=== PATIENT | female | born 1985 | race African-American/Black ===

== ENCOUNTER 2021-11-16 22:13 | Inpatient (IN) | payer MEDICAID ==
[~2021-11-16] VITALS: Ht 179 cm; Wt 92.1 kg
[2021-11-16] MEDS ORDERED: MORPHINE SULFATE 5 MG/ML VIAL IVP PRN (23:40)
[2021-11-16] MEDS ORDERED: ONDANSETRON 4 MG/2 ML VIAL IVP PRN (23:40)
[2021-11-16] MEDS ORDERED: CARBOPROST 250 MCG/ML AMP IM PRN (23:40)
[2021-11-16] MEDS ORDERED: OXYTOCIN 20 UNITS in LACTATED RINGERS 1,000 ML IV SCH (23:40)
[2021-11-16] MEDS ORDERED: MISOPROSTOL 25 MCG TAB VG PRN (23:40)
[2021-11-16] MEDS ORDERED: LACTATED RINGERS 1,000 ML IV SCH (23:40)
[2021-11-16] MEDS ORDERED: METHYLERGONOVINE 0.2 MG/ML AMP IM PRN (23:40)
[2021-11-17 00:11] LABS: BASOPHILS % (AUTO) 0.3 % (0.0-2.0); EOSINOPHILS # (AUTO) 0.2 K/uL (0-0.4); EOSINOPHILS % (AUTO) 1.9 % (0.0-4.0); HEMATOCRIT 34.2 % (36-48); HEMOGLOBIN 11.6 g/dL (12.0-16.0); LYMPHOCYTES # (AUTO) 2.4 K/uL (2.5-16.5); LYMPHOCYTES % (AUTO) 30.2 % (20.5-51.1); MEAN CORPUSCULAR HEMOGLOBIN 33 pg (27-31); MEAN CORPUSCULAR HGB CONC 34 g/dL (33-37); MEAN CORPUSCULAR VOLUME 98.1 fL (80-94); MONOCYTES # (AUTO) 0.9 K/uL (0.8-1.0); MONOCYTES % (AUTO) 10.6 % (1.7-9.3); NEUTROPHILS # (AUTO) 4.6 K/uL (1.8-7.7); PLATELET COUNT (AUTO) 179 K/uL (140-450); RED BLOOD CELL COUNT(AUTO) 3.49 MIL/uL (4.20-5.40); RED CELL DISTRIBUTION WIDTH 13.2 % (11.6-13.7); WHITE BLOOD COUNT (AUTO) 8.1 K/uL (4.8-10.8)
[2021-11-17 00:19] LABS: APPEARANCE,URINE CLEAR (CLEAR); BILIRUBIN,URINE NEGATIVE (NEGATIVE); BLOOD, URINE NEGATIVE (NEGATIVE); COLOR,URINE YELLOW (YELLOW); LEUKOCYTE ESTERASE ,URINE NEGATIVE (NEGATIVE); NITRITE, URINE NEGATIVE (NEGATIVE); UGLUCOSE NEGATIVE (NEGATIVE)
[2021-11-17 00:34] LABS: ALBUMIN 2.7 g/dL (3.4-5.0); ANION GAP 12.1 (8-16); CARBON DIOXIDE 25.7 mmol/L (21-32); CREATININE 0.6 mg/dL (0.6-1.3); POTASSIUM 3.8 mmol/L (3.5-5.1); TOTAL BILIRUBIN 0.3 mg/dL (0.0-1.0)
[2021-11-17] MEDS ORDERED: PRETAB PO (03:31)
[2021-11-17 03:32] VITALS: BP 121/82
[2021-11-17] MEDS ORDERED: ROPIVACAINE 0.2%/NS PREMIX 200 ML EPI ONE (05:26)
[2021-11-17] MEDS ORDERED: fentaNYL citrate 0.05 MG/ML VIAL ONE (05:29)
[2021-11-17] MEDS ORDERED: AMPICILLIN 2,000 MG VIAL ONE (05:29)
[2021-11-17] MEDS ORDERED: OXYTOCIN 20 UNITS/LR PREMIX 1,000 ML IV ONE (06:39)
[2021-11-17] MEDS ORDERED: MEASLES, MUMPS, AND RUBELLA 1 VIAL SQVAC ONE (07:40)
[2021-11-17] MEDS ORDERED: bisacodyL 5 MG TABEC PO PRN (07:40)
[2021-11-17] MEDS ORDERED: METHYLERGONOVINE 0.2 MG TAB PO PRN (07:40)
[2021-11-17] MEDS ORDERED: METHYLERGONOVINE 0.2 MG/ML AMP IM PRN (07:40)
[2021-11-17] MEDS ORDERED: SIMETHICONE 80 MG TAB.CHEW PO PRN (07:40)
[2021-11-17] MEDS ORDERED: IBUPROFEN 600 MG TAB PO PRN (07:40)
[2021-11-17] MEDS ORDERED: OXYTOCIN 10 UNITS/ML VIAL IM PRN (07:40)
[2021-11-17] MEDS ORDERED: DOCUSATE SODIUM 100 MG GELCAP PO PRN (07:40)
[2021-11-17] MEDS ORDERED: BENZOCAINE/MENTHOL 20%-0.5% 60 GM CAN TP PRN (07:40)
[2021-11-17] MEDS ORDERED: AMPICILLIN 2,000 MG in NACL 0.9% MINI-BAG PLUS 100 ML IV SCH (08:00)
--- NOTE | 2021-11-17 09:06 | NUR ---
PATIENT HAS BEEN SCREENED AND CATEGORIZED LOW NUTRITION RISK. PATIENT WILL BE SEEN WITHIN 7 DAYS OF ADMISSION. 11/23/[address]
[2021-11-17] MEDS ORDERED: AMPICILLIN 1,000 MG in NACL 0.9% MINI-BAG PLUS 50 ML IV SCH (12:00)
[2021-11-17] MEDS: IBUPROFEN 800 MG TAB PO PRN ×2 (12:33→20:44)
[2021-11-18] MEDS ORDERED: oxyCODONE/APAP 5/325 MG 1 TAB TAB ONE (00:08)
[2021-11-18] MEDS ORDERED: oxyCODONE/APAP 5/325 MG 1 TAB TAB PO PRN (00:10)
[2021-11-18] MEDS: IBUPROFEN 800 MG TAB PO PRN ×2 (06:48→13:15)
[2021-11-18 09:23] LABS: HEMATOCRIT 35.8 % (36-48)
== END 2021-11-18 14:40 | disposition home or self-care (01) | DRG 560 ==
LOC: OBSVTOIN 22:13 → MLD 22:13 → MFCC 11-17 13:19
PROVIDERS: ADMIT Obstetrics & Gynecology; ATTEND Obstetrics & Gynecology
PROC: 10E0XZZ Delivery of Products of Conception, External Approach (ICD-10-PCS; principal; 2021-11-17)
PROC: 3E0R3BZ Introduction of Anesthetic Agent into Spinal Canal, Percutaneous Approach (ICD-10-PCS; 2021-11-17)
PROC: 00HU33Z Insertion of Infusion Device into Spinal Canal, Percutaneous Approach (ICD-10-PCS; 2021-11-17)
DX: O77.0 Labor and delivery complicated by meconium in amniotic fluid (principal); Z37.0 Single live birth; O69.81X0 Labor and delivery complicated by cord around neck, without compression, not applicable or unspecified; Z20.822 Contact with and (suspected) exposure to COVID-19; Z3A.39 39 weeks gestation of pregnancy; O99.02 Anemia complicating childbirth
CPT/HCPCS: 36415; 51702; 59409; 76815; 80053; 81003; 85018; 85025; 86592; 86886; 86900; 86901; 90715; J0290; J2590; J2795; J3010; J7120; Q0092